=== PATIENT | female | born 1975 | race African-American/Black ===

== ENCOUNTER 2019-06-24 11:21 | Emergency (ER) | payer OTHER ==
[~2019-06-24] VITALS: Ht 160 cm; Wt 35.5 kg
[~2019-06-24 11:21] MED LIST: METF-960 PO
[2019-06-24 12:15] VITALS: BP 118/78
[2019-06-24] MEDS ORDERED: AZITHROMYCIN 250 MG TABLET PO ONE (13:00)
[2019-06-24] MEDS ORDERED: LIDOCAINE/PF 1% 2 ML VIAL IM ONE (13:00)
[2019-06-24] MEDS ORDERED: CefTRIAXone SODIUM 1 GM/VIAL IM ONE (13:00)
== END 2019-06-24 14:36 | disposition home or self-care (01) ==
LOC: EMS 11:21
DX: N76.0 Acute vaginitis (principal); F32.9 Major depressive disorder, single episode, unspecified; E03.9 Hypothyroidism, unspecified; F14.90 Cocaine use, unspecified, uncomplicated; F12.90 Cannabis use, unspecified, uncomplicated; F19.90 Other psychoactive substance use, unspecified, uncomplicated
CPT/HCPCS: 87210; 87491; 87591; 96372; 99283; J0696; J3490

== ENCOUNTER 2020-02-03 13:46 | Emergency (ER) | payer OTHER ==
[~2020-02-03] VITALS: Ht 165.1 cm; Wt 68.2 kg
[2020-02-03 13:47] VITALS: BP 129/86
[2020-02-03] MEDS ORDERED: AZITHROMYCIN 500 MG TABLET PO ONE (14:45)
[2020-02-03] MEDS ORDERED: IBUPROFEN 600 MG TABLET PO ONE (14:45)
[2020-02-03] MEDS ORDERED: CefTRIAXone SODIUM 1 GM/VIAL IM ONE (14:45)
[2020-02-03 15:21] LABS: APPEARANCE,URINE CLOUDY (CLEAR); BILIRUBIN,URINE NEGATIVE (NEGATIVE); GLUCOSE, URINE (UA) NEGATIVE (NEGATIVE); KETONES,URINE NEGATIVE (NEGATIVE); LEUKOCYTE ESTERASE ,URINE LARGE (NEGATIVE); NITRATE,URINE NEGATIVE (NEGATIVE); PH,URINE 6.5 (5.0-8.0); PROTEIN,URINE TRACE (NEGATIVE)
[2020-02-03 15:24] LABS: BACTERIA,URINE Moderate /HPF (None Seen); OCCULT BLOOD,URINE SMALL (NEGATIVE)
[2020-02-03 15:25] LABS: SQUAMOUS EPITHELIAL CELL,UR Moderate /LPF (None Seen)
== END 2020-02-03 15:54 | disposition home or self-care (01) ==
LOC: EMS 13:50
DX: N39.0 Urinary tract infection, site not specified (principal); N89.8 Other specified noninflammatory disorders of vagina; F32.9 Major depressive disorder, single episode, unspecified; F14.90 Cocaine use, unspecified, uncomplicated; F12.90 Cannabis use, unspecified, uncomplicated; F19.90 Other psychoactive substance use, unspecified, uncomplicated
CPT/HCPCS: 81001; 84703; 87086; 87491; 87591; 96372; 99283; J0696